=== PATIENT | female | born 1940 | race Caucasian/White ===

== ENCOUNTER 2016-11-20 08:42 | Emergency (ER) | payer MEDICARE, BC ==
--- NOTE | 2016-11-20 09:03 | EDM.PDOC ---
ED HPI GENERAL MEDICAL PROBLEM - General Chief Complaint: Respiratory Problem Stated Complaint: [id number] BRONCHITIS HARD TIME BREATHING Time Seen by Provider: 11/20/16 08:54 Source of Information: Reports: Patient History Limitations: Reports: No Limitations - History of Present Illness INITIAL COMMENTS - FREE TEXT/NARRATIVE: Pt states that she has been having shortness of breath and a productive cough for the past week. denies chest pain. Onset Date: 11/13/16 Duration: Getting Worse Location: Reports: Chest Improves with: Reports: None Worsens with: Reports: Movement Context: Reports: Activity Associated Symptoms: Reports: cough w sputum, Shortness of Breath - Related Data Allergies Allergy/AdvReac Type Severity Reaction Status Date / Time Penicillins Allergy Anaphylactic Verified 04/24/14 11:46 Shock Home Meds: Home Meds Aspirin 1 tab PO DAILY PRN 09/16/13 [History] Hydrochlorothiazide 12.5 mg PO DAILY 09/16/13 [History] atorvaSTATin [Lipitor] 20 mg PO BEDTIME 04/24/14 [History] Levothyroxine [Synthroid] 1 tab PO DAILY 11/20/16 [History] Social & Family History - Tobacco Use Smoking Status *Q: Current Every Day Smoker Years of Tobacco use: 50 Second Hand Smoke Exposure: Yes - Alcohol Use Days Per Week of Alcohol Use: 0 - Recreational Drug Use Recreational Drug Use: No Drug Use in Last 12 Months: No ED ROS GENERAL - Review of Systems Review Of Systems: See Below Respiratory: Reports: Shortness of Breath, Cough, Sputum ED EXAM, GENERAL - Physical Exam Exam: See Below Exam Limited By: No Limitations General Appearance: Alert, WD/WN, No Apparent Distress, Thin Neck: Normal Inspection, Supple, Non-Tender, Full Range of Motion Respiratory/Chest: No Respiratory Distress, Chest Non-Tender, Decreased Breath Sounds, Crackles (R lobe diffusely ), Other (shallow pursed lip breathing ) Cardiovascular: Normal Peripheral Pulses, Regular Rate, Rhythm, No Edema, No Gallop, No JVD, No Murmur, No Rub Neurological: Alert, Oriented, CN II-XII Intact, Normal Cognition, Normal Gait, Normal Reflexes, No Motor/Sensory Deficits Skin Exam: Warm, Dry, Intact, Normal Color, No Rash Course - Vital Signs Last Recorded V/S: Last Vital Signs Temp 99.0 F 11/20/16 08:45 Pulse 97 11/20/16 09:52 Resp 30 H 11/20/16 08:45 BP 154/73 H 11/20/16 08:45 Pulse Ox 94 L 11/20/16 08:45 - Orders/Labs/Meds Orders: Active Orders 24 hr Category Date Time Status EKG Documentation Completion [RC] STAT Care 11/20/16 09:07 Active RT Aerosol Therapy [RC] ASDIRECTED Care 11/20/16 09:31 Active Labs: Laboratory Tests 11/20/16 11/20/16 11/20/16 Range/Units 09:18 09:18 09:18 WBC 8.1 (5.0-10.0) 10^3/uL RBC 4.45 (4.2-5.4) 10^6/uL Hgb 13.0 (12.0-16.0) g/dL Hct 39.6 (37.0-47.0) % MCV 89.0 (80-100) fL MCH 29.2 (27.0-34.0) pg MCHC 32.8 L (33.0-35.0) g/dL Plt Count 476 H (150-450) 10^3/uL Neut % (Auto) 77.1 H (42.2-75.2) % Lymph % (Auto) 15.8 L (20.5-50.1) % Hitchcock % (Auto) 5.9 (2-8) % Eos % (Auto) 1.0 (1.0-3.0) % Baso % (Auto) 0.2 (0.0-1.0) % Sodium 139 (135-145) mmol/L Potassium 3.2 L (3.6-5.0) mmol/L Chloride 100 L (101-111) mmol/L Carbon Dioxide 27.0 (21.0-31.0) mmol/L Anion Gap 15.2 BUN 13 (7-18) mg/dL Creatinine 0.7 (0.6-1.3) mg/dL Est Cr Clr Drug Dosing 38.89 mL/min Estimated GFR (MDRD) > 60 Glucose 88 (74-105) mg/dL Calcium 8.7 (8.4-10.2) mg/dl Creatine Kinase 47 (26-174) IU/L Creatine Kinase Index 3.2 H (0-2.4) % CK-MB (CK-2) 1.50 (0.4-4.7) ng/mL Troponin I 0.02 (0.00-0.02) ng/ml B-Natriuretic Peptide 94 (0-100) pg/ml Meds: Medications Discontinued Medications Generic Name Dose Route Start Last Admin Trade Name Terrell PRN Reason Stop Dose Admin Albuterol/Ipratropium 3 ml 11/20/16 09:29 11/20/16 09:52 Duoneb 3.0-0.5 Mg/3 Ml NEB 11/20/16 09:30 3 ml ONETIME ONE Administration Potassium Chloride 40 meq 11/20/16 10:25 11/20/16 10:29 Klor-Con 10 PO 11/20/16 10:26 40 meq ONETIME ONE Administration Prednisone 20 mg 11/20/16 09:29 11/20/16 09:39 Prednisone PO 11/20/16 09:30 20 mg ONETIME ONE Administration Departure - Departure Time of Disposition: 10:39 Disposition: Home, Self-Care 01 Condition: Good Clinical Impression: Pneumonia Qualifiers: Pneumonia type: due to unspecified organism Laterality: right Lung location: lower lobe of lung Qualified Code(s): J18.1 - Lobar pneumonia, unspecified organism - Discharge Information Instructions: Shortness of Breath, [id number], Community-Acquired Pneumonia, Adult, [id number] Forms: ED Department Discharge Additional Instructions: Take the antibiotic until gone. You will be on a steroid for 3 days. follow up in clinic in 1 week for re-evaluation. Return sooner if worsening symptoms. - My Orders Last 24 Hours: My Active Orders 11/20/16 09:07 EKG Documentation Completion [RC] STAT 11/20/16 09:31 RT Aerosol Therapy [RC] ASDIRECTED - Assessment/Plan Last 24 Hours: My Active Orders 11/20/16 09:07 EKG Documentation Completion [RC] STAT 11/20/16 09:31 RT Aerosol Therapy [RC] ASDIRECTED
[2016-11-20 09:04] VITALS: BP 154/73
[2016-11-20] MEDS ORDERED: Albuterol/Ipratropium 3.0-0.5 MG/3 ML Neb Soln NEB ONE (09:29)
[2016-11-20] MEDS ORDERED: predniSONE 20 MG Tab PO ONE (09:29)
[2016-11-20 09:42] LABS: CHLORIDE,CL 100 mmol/L (101-111); SODIUM,NA 139 mmol/L (135-145)
[2016-11-20] MEDS ORDERED: Potassium Chloride 10 MEQ Tab.ER PO ONE (10:25)
--- NOTE | 2016-11-20 10:29 | CR ---
Clinical history: 76-year-old female shortness of breath. Interpretation: Abnormal. Bibasilar and lingular consolidation (right lower lobe greater than left) new since comparison CT sc an chest, 25 August 2016. Aspiration? Bronchiectasis? Normal cardiac silhouette without cephalization of vascular flow or signs of alveolar edema. No lung mass or hilar lymphadenopathy. No other lobar infiltrates or atelectasis. Generalized air trapping. 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 Atheromatous calcification arch of the aorta. CONCLUSION: New lingular and bibasilor lower lobe consolidation (R>L). Clinical aspiration? Ammonia? No CHF.
--- NOTE | 2016-11-23 00:16 | EKG ---
11/20/2016 - WAQAR TORRES I reviewed the EKG and agree with the machine's reading. [facility] /[id number]
== END 2016-11-20 10:50 | disposition home or self-care (01) ==
LOC: DL.ED 08:42
DX: J18.9 Pneumonia, unspecified organism (principal); R06.02 Shortness of breath; Z79.82 Long term (current) use of aspirin; Z79.899 Other long term (current) drug therapy; Z88.0 Allergy status to penicillin; F17.210 Nicotine dependence, cigarettes, uncomplicated
CPT/HCPCS: 36415; 71020; 80048; 82550; 82553; 83880; 84484; 85025; 93005; 93010; 94640; 99283; 99285; A9270

== ENCOUNTER 2017-01-22 05:39 | Day surgery (SDC) | payer MEDICARE, BC ==
[2017-01-22] MEDS ORDERED: fentaNYL 100 MCG/2 ML SDV ONE (06:04)
[2017-01-22] MEDS ORDERED: Midazolam 1 MG/ML 2 ML SDV ONE (06:04)
[2017-01-22] MEDS ORDERED: Dextrose 5%-0.45% NaCl 1,000 ML IV SCH (07:00)
[2017-01-22] MEDS ORDERED: Sodium Chloride 0.9% 10 ML Syringe FLUSH PRN (07:00)
[2017-01-22] MEDS ORDERED: fentaNYL 100 MCG/2 ML SDV IV ONE ×2 (07:31→15:08)
[2017-01-22] MEDS ORDERED: Midazolam 1 MG/ML 2 ML SDV IV ONE ×2 (07:32→15:08)
[2017-01-22 09:19] VITALS: BP 98/60
--- NOTE | 2017-01-22 09:57 | OR ---
DATE: 01/22/2017 PROCEDURES: Esophagogastroduodenoscopy and multiple pinch biopsies. INSTRUMENT USED: GIF-H180 Olympus video panendoscope. PREMEDICATIONS: No oral topical anesthesia used. Fentanyl 50 mcg intravenous, Versed 0.5 mg intravenous, nasal 1.5 L O2 cannula. The procedure was done under pulse oximetry, BP recording, and rn cardiac. INDICATION: The patient with lack of appetite and progressive weight loss unexplained, and not responsive to medical measures. DESCRIPTION OF PROCEDURE: Esophagogastroduodenoscopy is performed for detection of any active erosive lesions. Malignancy also under consideration. H. pylori status to be determined. Endoscopic hemostasis therapy if needed. The scope was passed with ease. Adequate visualization of the esophagus was made from proximal to distal areas. No upper esophageal lesions identified. No distal esophageal stricture. No uphill or downhill esophageal varices. No Emily-Mercado tear. No evidence of erosive esophagitis by [place] criteria. No esophageal polyp or tumor mass identified. Z-line was seen at around 40 cm distal to the oral verge. Configuration consistent with Grade 1 by Zapp classification. No proximal gastric varices noted. Gastric fundus examination by retroflexion showed no polypoid lesions. No gastric ulcer, malignant mass, or vascular ectasia identified. Duodenal bulb showed no ulcer. Visualized second part of the duodenum was unremarkable. Multiple pinch biopsies were taken from the gastric antrum and proximal body and sent for PyloriTek test for H. pylori, and if negative in an hour, the tissue is to be sent for histopathology. No bleeding was noted from any of the visualized areas at the completion of examination. Photographs were taken of the duodenal bulb, gastric antrum, fundus, and distal esophagus. IMPRESSION: Normal study. The patient tolerated the procedure well. [facility] /[id number]
== END 2017-01-22 09:30 | disposition home or self-care (01) ==
LOC: DL.ENDO 05:39
PROVIDERS: ATTEND Internal Medicine Gastroenterology
DX: R63.0 Anorexia (principal); R63.4 Abnormal weight loss; F17.210 Nicotine dependence, cigarettes, uncomplicated; I10 Essential (primary) hypertension; E78.5 Hyperlipidemia, unspecified; I65.29 Occlusion and stenosis of unspecified carotid artery; Z88.0 Allergy status to penicillin; Z87.01 Personal history of pneumonia (recurrent); Z98.890 Other specified postprocedural states; Z79.899 Other long term (current) drug therapy
CPT/HCPCS: 43239; 87077; J2250; J3010; J7042; 88305